=== PATIENT | male | born 1960 | race African-American/Black ===

== ENCOUNTER 2017-08-01 23:11 | Emergency (ER) | payer OTHER ==
[~2017-08-01] VITALS: Ht 175.3 cm; Wt 77.1 kg
[~2017-08-01 23:11] MED LIST: IBUPROFEN600 MG ORAL; NKM
--- NOTE | 2017-08-01 23:56 | Emergency Room Report ---
History of Present Illness General Chief Complaint: Alcohol Intoxication Source: Patient, EMS Present Illness HPI 56-year-old male with unknown pmhx p/w alcohol intoxication. Patient poor historian, EMS states that patient was drinking alcohol, also complaining of some shortness of breath Patient admits to drinking alcohol, cannot quantify amount. Currently denying any complaints. Denies history of trauma Allergies: Coded Allergies: CHLORPROMAZINE (Verified Allergy, Mild, 06/27/15) Patient History Past Medical History: see triage record Past Surgical History: none Pertinent Family History: none Reviewed Nursing Documentation: PMH: Agreed, PSxH: Agreed Nursing Documentation-PM Past Medical History: No History, Except For Hx Cardiac Problems: No - ALCHOLISM Hx Asthma: Yes Review of Systems All Other Systems: negative except mentioned in HPI Physical Exam Vital Signs Date Time Temp Pulse Resp B/P (MAP) Pulse Ox O2 Delivery O2 Flow Rate FiO2 08/01/17 23:14 97.9 72 18 115/72 100 Room Air Sp02 EP Interpretation: reviewed, normal General Appearance: non-toxic, other - intoxicated middle aged male, at this time NAD, mumbling, no sob Head: normocephalic, atraumatic Eyes: bilateral eye normal inspection, bilateral eye PERRL, bilateral eye EOMI ENT: normal ENT inspection, normal pharynx, normal voice, moist mucus membranes Neck: normal inspection, full range of motion, supple Respiratory: normal inspection, lungs clear, normal breath sounds, no respiratory distress, no retraction, no wheezing, speaking full sentences, chest symmetrical Cardiovascular #1: normal inspection, regular rate, rhythm, no edema, normal capillary refill Cardiovascular #2: 2+ radial (R), 2+ radial (L) Gastrointestinal: normal inspection, non tender, soft, non-distended, no guarding Genitourinary: no CVA tenderness Musculoskeletal: normal inspection, back normal, normal range of motion, non- tender Neurologic: motor strength/tone normal, sensory intact, other - intoxicated unable to perform full neuro exam, oriented to person Psychiatric: other - intoxicated Skin: normal inspection, normal color, no rash, warm/dry, well hydrated, normal turgor Medical Decision Making Diagnostic Impression: Primary Impression: Acute alcoholic intoxication Additional Impressions: Cocaine abuse Marijuana abuse ER Course 56-year-old male with alcohol intoxication also complaining of shortness of breath DDX: Alcohol intoxication rule out other toxicity such as aspirin and Tylenol No signs of trauma Shortness of breath: ACS, pneumonia, COPD Plan: BGM, Obtain labs, alcohol level, Tylenol, aspirin level The patient is allergic to aspirin, states that he has shortness of breath and rash ER course: Patient has remained stable during ED stay. Received fluids positive tox for alcohol, marijuana Patient now awake and alert, sober, stable for DC home Ambulating wo difficulty Disposition: Pt to be DCed to home Please note that this Emergency Department Report was dictated using [employer]ou[employer]um[employer] drier operator technology software, occasionally this can lead to erroneous entry secondary to interpretation by the dictation equipment Chest X-ray CXR: Ordered: Yes 1 view Indication: Chest pain EP interpretation: Yes Interpretation: No consolidation, no effusion, no PTX, no acute cardiopulmonary disease Impression: No acute disease Electronically signed by Vin Muniz MD Laboratory Tests Test 08/01/17 23:32 White Blood Count 9.5 K/UL (4.8-10.8) Red Blood Count 5.04 M/UL (4.70-6.10) Hemoglobin 15.6 G/DL (14.2-18.0) Hematocrit 47.9 % (42.0-52.0) Mean Corpuscular Volume 95 FL (80-99) Mean Corpuscular Hemoglobin 31.0 PG (27.0-31.0) Mean Corpuscular Hemoglobin Concent 32.6 G/DL (32.0-36.0) Red Cell Distribution Width 12.7 % (11.6-14.8) Platelet Count 189 K/UL (150-450) Mean Platelet Volume 6.1 FL (6.5-10.1) L Neutrophils (%) (Auto) 52.1 % (45.0-75.0) Lymphocytes (%) (Auto) 34.1 % (20.0-45.0) Monocytes (%) (Auto) 10.0 % (1.0-10.0) Eosinophils (%) (Auto) 2.1 % (0.0-3.0) Basophils (%) (Auto) 1.7 % (0.0-2.0) Sodium Level 134 MMOL/L (136-145) L Potassium Level 3.6 MMOL/L (3.5-5.1) Chloride Level 100 MMOL/L (98-107) Carbon Dioxide Level 15 MMOL/L (21-32) L Anion Gap 19 (5-15) H Blood Urea Nitrogen 11 mg/dL (7-18) Creatinine 0.8 MG/DL (0.55-1.00) Estimate Glomerular Filtration Rate > 60 mL/min (>60) Glucose Level 148 MG/DL (74-106) H Calcium Level 9.5 MG/DL (8.5-10.1) Total Bilirubin 0.4 MG/DL (0.2-1.0) Aspartate Amino Transferase (AST) 66 U/L (15-37) H Alanine Aminotransferase (ALT) 43 U/L (12-78) Alkaline Phosphatase 73 U/L (46-116) Total Creatine Kinase 224 U/L (26-308) Troponin I 0.000 ng/mL (0.000-0.056) Total Protein 8.1 G/DL (6.4-8.2) Albumin 3.2 G/DL (3.4-5.0) L Globulin 4.9 g/dL Albumin/Globulin Ratio 0.6 (1.0-2.7) L Salicylates Level 3 ug/mL (2.8-20) Urine Opiates Screen Negative (NEGATIVE) Acetaminophen Level 8.0 MCG/ML (10-30) L Urine Barbiturates Screen Negative (NEGATIVE) Phencyclidine (PCP) Screen Positive (NEGATIVE) H Urine Amphetamines Screen Negative (NEGATIVE) Urine Benzodiazepines Screen Negative (NEGATIVE) Urine Cocaine Screen Positive (NEGATIVE) H Urine Marijuana (THC) Screen Positive (NEGATIVE) H Serum Alcohol 327 mg/dL EKG Diagnostic Results Rate: normal Rhythm: NSR ST Segments: other - KORY in V3 only, no reciprocal changes (present on previous EKGs) Rhythm Strip Diag. Results EP Interpretation: yes Rate: 72 Rhythm: NSR, no PVC's, no ectopy Last Vital Signs Date Time Temp Pulse Resp B/P (MAP) Pulse Ox O2 Delivery O2 Flow Rate FiO2 08/01/17 23:14 97.9 72 18 115/72 100 Room Air Disposition: HOME, SELF-CARE Condition: Improved Referrals: [facility] (PCP) Patient Instructions: Alcohol Intoxication, [id number] Vin Muniz M.D. Aug 01, 2017 23:56
[2017-08-02 00:05] LABS: BASOPHILS % (AUTO) 1.7 % (0.0-2.0); EOSINOPHILS % (AUTO) 2.1 % (0.0-3.0); LYMPHOCYTES % (AUTO) 34.1 % (20.0-45.0); MEAN CORPUSCULAR HGB CONC 32.6 G/DL (32.0-36.0); MEAN CORPUSCULAR VOLUME 95 FL (80-99); MEAN PLATELET VOLUME 6.1 FL (6.5-10.1); NEUTROPHILS % (AUTO) 52.1 % (45.0-75.0); PLATELET COUNT 189 K/UL (150-450); RED BLOOD COUNT 5.04 M/UL (4.70-6.10); RED CELL DISTRIBUTION WIDTH 12.7 % (11.6-14.8); WHITE BLOOD COUNT 9.5 K/UL (4.8-10.8)
[2017-08-02 00:46] VITALS: BP 103/63
[2017-08-02 02:08] LABS: ALANINE AMINOTRANSFERASE 43 U/L (12-78); ALBUMIN/GLOBULIN RATIO 0.6 (1.0-2.7); ANION GAP 19 (5-15); ASPARTATE AMINO TRANSFERASE 66 U/L (15-37); CARBON DIOXIDE 15 MMOL/L (21-32); CHLORIDE 100 MMOL/L (98-107); CREATININE 0.8 MG/DL (0.55-1.00); GLOMERULAR FILTRATION RATE > 60 mL/min (>60); POTASSIUM 3.6 MMOL/L (3.5-5.1); SODIUM 134 MMOL/L (136-145); TOTAL PROTEIN 8.1 G/DL (6.4-8.2)
[2017-08-02 02:40] VITALS: BP 114/75
[2017-08-02 02:44] LABS: ALCOHOL 327 mg/dL; CALCIUM 9.5 MG/DL (8.5-10.1)
[2017-08-02 04:40] VITALS: BP 107/72
[2017-08-02 06:12] VITALS: BP 110/83
[2017-08-02 06:20] VITALS: BP 110/83
--- NOTE | 2017-08-02 10:07 | Diagnostic Imaging Report ---
Indication: Chest pain Comparison: None A single view chest radiograph was obtained. Findings: Cardiomediastinal appearance is within normal limits for age. Aorta mildly ectatic. Pulmonary vascularity is appropriate. The diaphragmatic contour is smooth and costophrenic angles are sharp. No pleural effusions are identified. The bones are osteopenic. Impression: No acute findings
--- NOTE | 2017-08-03 08:09 | Cardiology Report ---
APPROVED REPORT EKG Measurement Heart [id number] Normal sinus rhythm Septal infarct, age undetermined Abnormal ECG
== END 2017-08-02 06:20 | disposition home or self-care (01) ==
LOC: EDUNIT# 23:11 → EDBD 23:11 → EMR 23:27
DX: F10.129 Alcohol abuse with intoxication, unspecified (principal); F14.10 Cocaine abuse, uncomplicated; F12.10 Cannabis abuse, uncomplicated
CPT/HCPCS: 36415; 71010; 80053; 80300; 80329; 82550; 84484; 85025; 93005; 96360; 99284

== ENCOUNTER 2019-06-23 18:45 | Emergency (ER) | payer OTHER ==
[~2019-06-23] VITALS: Ht 177.8 cm; Wt 63.5 kg
[2019-06-23 18:55] VITALS: BP 140/85
--- NOTE | 2019-06-23 18:55 | NUR ---
ED Nurse Note: AYDE RA 26 for etoh intoxication via gurney. pt is lethargic. unable to stay awake more than 5 seconds. VSS
--- NOTE | 2019-06-23 19:03 | Emergency Room Report ---
History of Present Illness General Chief Complaint: Altered Level of Consciousness Source: Patient Present Illness [facility] EMS was called by a concerned citizen and a bus stop. The patient was lethargic. Allegedly he has been drinking alcohol. Bystanders denied any observed seizure or head trauma. During transport the patient was unable to answer questions for the paramedics. Here he is barely able to answer his name with slurred speech. Unable to answer other questions. Has vomitus on shirt. After terminating his name this is his most recent visit Jul 2017 with d/c dx: Primary Impression: Acute alcoholic intoxication Additional Impressions: Cocaine abuse Marijuana abuse Allergies: Coded Allergies: CHLORPROMAZINE (Verified Allergy, Mild, 06/27/15) UNABLE TO ASSESS (Unverified , 06/23/19) Patient History Limited by: medical condition Past Medical History: see triage record, old chart reviewed Social History: Reports: smoking, alcohol use, drug use Social History Narrative From [facility] Reviewed Nursing Documentation: PMH: Agreed; PSxH: Agreed Nursing Documentation-PM Past Medical History: No History, Except For Hx Cardiac Problems: No - ALCHOLISM Hx Asthma: Yes Review of Systems All Other Systems: limited Physical Exam Vital Signs Date Time Temp Pulse Resp B/P (MAP) Pulse Ox O2 Delivery O2 Flow Rate FiO2 06/23/19 18:46 97.5 90 16 150/105 (120) 99 Sp02 EP Interpretation: reviewed, normal General Appearance: no apparent distress, lethargic Head: normocephalic, atraumatic Eyes: bilateral eye PERRL, bilateral eye abnormal EOM, bilateral eye Scleral Injection ENT: moist mucus membranes - Gag present Neck: supple Respiratory: lungs clear, normal breath sounds Cardiovascular #1: regular rate, rhythm Cardiovascular #2: 2+ radial (R) Gastrointestinal: normal inspection, non tender, no mass, non-distended, decreased bowel sounds Musculoskeletal: back normal, normal range of motion Neurologic: motor strength/tone normal, sensory intact - Withdraws to painful stimuli, nystagmus Psychiatric: other - Lethargic Reflexes: 1+ knee (R), 1+ knee (L) Skin: no rash Medical Decision Making Diagnostic Impression: Primary Impression: Alcohol intoxication Qualified Codes: F10.929 - Alcohol use, unspecified with intoxication, unspecified ER Course Patient brought by EMS for altered mentation with a smell of alcohol on his breath and vomit uninsured. Differential includes acute alcohol intoxication, electrolyte imbalance, aspiration, rhabdomyolysis amongst others. Evaluation will be with EKG, chest x-ray and labs. The patient will receive IV thiamine and IV hydration. CT imaging of his head is not indicated as long is mentation improves. CXR poor insp. Labs unremarkable except for elevated LFTs and slightly low mg. Patient attempted to stand but was unable to do so. Caught by staff before falling. Questionable addition as patient was able to apparently transfer from EMS to [facility]. Minimally improved responsiveness. Still Gag. 20:50. Signed out to Dr. Heard. Laboratory Tests Test 06/23/19 19:05 White Blood Count 6.0 K/UL (4.8-10.8) Red Blood Count 5.14 M/UL (4.70-6.10) Hemoglobin 15.2 G/DL (14.2-18.0) Hematocrit 44.7 % (42.0-52.0) Mean Corpuscular Volume 87 FL (80-99) Mean Corpuscular Hemoglobin 29.5 PG (27.0-31.0) Mean Corpuscular Hemoglobin Concent 33.9 G/DL (32.0-36.0) Red Cell Distribution Width 12.0 % (11.6-14.8) Platelet Count 221 K/UL (150-450) Mean Platelet Volume 5.4 FL (6.5-10.1) L Neutrophils (%) (Auto) 36.4 % (45.0-75.0) L Lymphocytes (%) (Auto) 46.1 % (20.0-45.0) H Monocytes (%) (Auto) 12.6 % (1.0-10.0) H Eosinophils (%) (Auto) 1.6 % (0.0-3.0) Basophils (%) (Auto) 3.3 % (0.0-2.0) H Prothrombin Time 11.1 SEC (9.30-11.50) Prothrombin Time INR 1.0 (0.9-1.1) Sodium Level 144 MMOL/L (136-145) Potassium Level 4.0 MMOL/L (3.5-5.1) Chloride Level 106 MMOL/L (98-107) Carbon Dioxide Level 25 MMOL/L (21-32) Anion Gap 13 mmol/L (5-15) Blood Urea Nitrogen 5 mg/dL (7-18) L Creatinine 0.7 MG/DL (0.55-1.30) Estimate Glomerular Filtration Rate > 60 mL/min (>60) Glucose Level 104 MG/DL (74-106) Calcium Level 8.9 MG/DL (8.5-10.1) Magnesium Level 1.7 MG/DL (1.8-2.4) L Total Bilirubin 0.4 MG/DL (0.2-1.0) Aspartate Amino Transferase (AST) 185 U/L (15-37) H Alanine Aminotransferase (ALT) 106 U/L (12-78) H Alkaline Phosphatase 66 U/L (46-116) Total Creatine Kinase 270 U/L (26-308) Total Protein 8.3 G/DL (6.4-8.2) H Albumin 3.5 G/DL (3.4-5.0) Globulin 4.8 g/dL Albumin/Globulin Ratio 0.7 (1.0-2.7) L Rhythm Strip Diag. Results EP Interpretation: yes Rhythm: NSR, no PVC's, no ectopy Chest X-Ray Diagnostic Results Chest X-Ray Diagnostic Results : Chest X-Ray Ordered: Yes # of Views/Limited/Complete: 1 View Indication: Other EP Interpretation: Yes Interpretation: no consolidation, no effusion, no pneumothorax, other - Hypoventilation Impression: Other Electronically Signed by: Electronically signed by Adam Cordero MD Last Vital Signs Date Time Temp Pulse Resp B/P (MAP) Pulse Ox O2 Delivery O2 Flow Rate FiO2 06/23/19 21:02 98.0 85 20 125/74 99 Room Air 06/23/19 18:55 99 Status: improved Disposition: HOME, SELF-CARE Condition: Improved Adam Cordero MD Jun 23, 2019 19:03
[2019-06-23 19:16] LABS: BASOPHILS % (AUTO) 3.3 % (0.0-2.0); EOSINOPHILS % (AUTO) 1.6 % (0.0-3.0); HEMATOCRIT 44.7 % (42.0-52.0); HEMOGLOBIN 15.2 G/DL (14.2-18.0); LYMPHOCYTES % (AUTO) 46.1 % (20.0-45.0); MEAN CORPUSCULAR VOLUME 87 FL (80-99); MONOCYTES % (AUTO) 12.6 % (1.0-10.0); NEUTROPHILS % (AUTO) 36.4 % (45.0-75.0); PLATELET COUNT 221 K/UL (150-450); RED BLOOD COUNT 5.14 M/UL (4.70-6.10)
--- NOTE | 2019-06-23 19:37 | Diagnostic Imaging Report ---
EXAM: XR Chest, 1 View CLINICAL HISTORY: ALOC TECHNIQUE: Frontal view of the chest. COMPARISON: No relevant prior studies available. FINDINGS: Lungs: Reduced lung volumes and accentuation of markings. No confluent consolidation. Pleural space: Unremarkable. No pneumothorax. Heart: Unremarkable. No cardiomegaly. Mediastinum: Unremarkable. Bones/joints: No acute fracture. IMPRESSION: Reduced lung volumes and accentuation of markings. No confluent consolidation.
[2019-06-23 19:54] LABS: ANION GAP 13 mmol/L (5-15); BLOOD UREA NITROGEN 5 mg/dL (7-18); CALCIUM 8.9 MG/DL (8.5-10.1); CARBON DIOXIDE 25 MMOL/L (21-32); CHLORIDE 106 MMOL/L (98-107); CREATININE 0.7 MG/DL (0.55-1.30); SODIUM 144 MMOL/L (136-145)
[2019-06-23 19:59] LABS: ALANINE AMINOTRANSFERASE 106 U/L (12-78); ALBUMIN 3.5 G/DL (3.4-5.0); ALBUMIN/GLOBULIN RATIO 0.7 (1.0-2.7); ALKALINE PHOSPHATASE 66 U/L (46-116); ASPARTATE AMINO TRANSFERASE 185 U/L (15-37); BILIRUBIN,TOTAL 0.4 MG/DL (0.2-1.0); CREATINE KINASE 270 U/L (26-308)
[2019-06-23 21:02] VITALS: BP 125/74
--- NOTE | 2019-06-23 22:21 | NUR ---
ED Nurse Note: pt continues with IV fluid therapy. VSS. pt still lethargic and unable to stay awake or carry on a conversation.
[2019-06-23 23:08] VITALS: BP 130/70
--- NOTE | 2019-06-24 00:02 | NUR ---
ED Nurse Note: pt i in bed with eyes closed. VSS
[2019-06-24 01:16] VITALS: BP 132/81
--- NOTE | 2019-06-24 02:17 | NUR ---
ED Nurse Note: pt in bed with eyes closed. IVF of NS 300ml/hr running to right AC. VSS. No acute distress is noted at this time.
[2019-06-24 03:20] VITALS: BP 148/102
--- NOTE | 2019-06-24 03:46 | NUR ---
ED Nurse Note: pt in bed awake. offered food but pt refused. states he is not hungry at this time.
--- NOTE | 2019-06-24 05:02 | NUR ---
ED Nurse Note: pt awake, assisted pt to restroom, pt ambulated without difficulty with steady gait. [place] and juice/ water given. VSS
--- NOTE | 2019-06-24 05:06 | Emergency Room Report ---
Physical Exam Vital Signs Date Time Temp Pulse Resp B/P (MAP) Pulse Ox O2 Delivery O2 Flow Rate FiO2 06/23/19 18:46 97.5 90 16 150/105 (120) 99 06/23/19 18:55 Room Air 06/23/19 18:55 99 Medical Decision Making Homeless Attestation The patient was medically screened by me and deemed appropriate for outpatient follow-up Diagnostic Impression: Primary Impression: Alcohol intoxication Qualified Codes: F10.929 - Alcohol use, unspecified with intoxication, unspecified ER Course Briefly, this is a 58-year-old male presenting today for alcohol intoxication. Patient was signed out to me 2200 hrs. and was allowed to metabolize in the emergency department. He is now awake, alert, ambulating with a steady gait. He will be given new close and counseled on the dangers of excessive alcohol use. Last Vital Signs Date Time Temp Pulse Resp B/P (MAP) Pulse Ox O2 Delivery O2 Flow Rate FiO2 06/24/19 03:20 98.1 84 20 148/102 97 Room Air 06/23/19 18:55 99 Disposition: HOME, SELF-CARE Condition: Improved Referrals: [facility] (PCP) Patient Instructions: Alcohol Intoxication Additional Instructions: See your doctor next week. Consider going to an AA meeting. Moderation or none at all. Teodoro Heard MD Jun 24, 2019 05:06
[2019-06-24 05:20] VITALS: BP 130/82
--- NOTE | 2019-06-24 05:20 | NUR ---
ER DISCHARGE NOTE: Patient is cleared to be discharged per ERMD, pt is aox4, on room air, with stable vital signs. pt was given dc instructions, pt was able to verbalize understanding, pt id band and iv site removed without complications. pt is able to ambulate with steady gait. pt took all belongings. bus token was provided to pt.
== END 2019-06-24 05:20 | disposition home or self-care (01) ==
LOC: EDBD 18:45 → EDUNIT# 18:45 → EMR 19:02
DX: F10.929 Alcohol use, unspecified with intoxication, unspecified (principal); F17.200 Nicotine dependence, unspecified, uncomplicated; J45.909 Unspecified asthma, uncomplicated; R41.82 Altered mental status, unspecified; R06.89 Other abnormalities of breathing; Z88.8 Allergy status to other drugs, medicaments and biological substances
CPT/HCPCS: 36415; 71045; 80053; 82550; 83735; 85025; 85610; 96360; 96361; 99284

== ENCOUNTER 2019-12-28 23:14 | Emergency (ER) | payer OTHER ==
[~2019-12-28] VITALS: Ht 175.3 cm; Wt 63.5 kg
--- NOTE | 2019-12-28 23:15 | NUR ---
ED Nurse Note: Walk-in patient picked up off of the street for doing drugs that patient denies he ingested. possibly PCP. patient is resting with no complaints, will monitor for orders.
[2019-12-28 23:19] VITALS: BP 144/95
--- NOTE | 2019-12-28 23:30 | Emergency Room Report ---
History of Present Illness General Chief Complaint: Overdose Source: Patient, Medical Record, EMS Present Illness HPI This is a 59-year-old male with a history of alcohol and drug abuse. He came in by EMS with chief complaint of overdose. He was found on the street intoxicated and altered. Bystander called 911. Patient denies any drug use other than marijuana tonight. He said he has not used cocaine for over a year. Denies any PCP use. He admits to drinking alcohol. Denies suicidal thoughts homicidal thought. No trauma. Nothing made it better. Nothing made it worse. Denies any other complaint. Allergies: Coded Allergies: CHLORPROMAZINE (Verified Allergy, Mild, 06/27/15) No Known Allergies (Unverified , 12/28/19) UNABLE TO ASSESS (Unverified , 06/23/19) Patient History Past Medical History: see triage record, old chart reviewed, HTN, asthma Past Surgical History: other Pertinent Family History: none Social History: Reports: smoking, alcohol use, drug use Immunizations: other Reviewed Nursing Documentation: PMH: Agreed; PSxH: Agreed Nursing Documentation-PMH Past Medical History: No History, Except For Hx Hypertension: Yes Hx Asthma: Yes Hx Seizures: Yes Review of Systems Eye: Denies: eye pain, blurred vision ENT: Denies: ear pain, nose congestion, throat swelling Respiratory: Denies: cough, shortness of breath Cardiovascular: Denies: chest pain, palpitations Gastrointestinal: Denies: abdominal pain, diarrhea, nausea, vomiting Musculoskeletal: Denies: back pain, joint pain Skin: Denies: rash Neurological: Denies: headache, numbness Endocrine: Denies: increased thirst, increased urine Hematologic/Lymphatic: Denies: easy bruising All Other Systems: negative except mentioned in HPI Physical Exam Vital Signs Date Time Temp Pulse Resp B/P (MAP) Pulse Ox O2 Delivery O2 Flow Rate FiO2 12/28/19 23:08 98.8 75 20 144/95 (111) 98 Room Air Vitals unremarkable Sp02 EP Interpretation: reviewed, normal General Appearance: well appearing, no apparent distress, alert, other - Intoxicated Head: normocephalic, atraumatic Eyes: bilateral eye PERRL, bilateral eye EOMI ENT: hearing grossly normal, normal pharynx Neck: full range of motion, supple, no meningismus Respiratory: chest non-tender, lungs clear, normal breath sounds Cardiovascular #1: regular rate, rhythm, no murmur Gastrointestinal: normal bowel sounds, non tender, no mass, no organomegaly, no bruit, non-distended Musculoskeletal: back normal, normal range of motion, gait/station normal Psychiatric: mood/affect normal Medical Decision Making Diagnostic Impression: Primary Impression: Alcohol intoxication Qualified Codes: F10.920 - Alcohol use, unspecified with intoxication, uncomplicated ER Course Patient with altered mental status secondary alcohol intoxication. There is no trauma to warrant x-ray or CT scan. Patient not suicidal homicidal. He denies drug use other than marijuana. Will discharge home once he is clinically sober. Last Vital Signs Date Time Temp Pulse Resp B/P (MAP) Pulse Ox O2 Delivery O2 Flow Rate FiO2 12/28/19 23:19 75 20 Room Air 12/28/19 23:19 98.8 144/95 98 Status: improved Disposition: HOME, SELF-CARE Condition: Stable Additional Instructions: Abstain from drugs and alcohol. Follow-up with your doctor in 7 days. Go to rehab. Return if worse. Markos Avina MD Dec 28, 2019 23:30
[2019-12-28 23:47] VITALS: BP 130/95
--- NOTE | 2019-12-29 00:15 | NUR ---
ED Nurse Note: Patient was givena warm blanket to rest. Will continue to monitor.
--- NOTE | 2019-12-29 01:04 | NUR ---
ED Nurse Note: Patient sleeping soundly, no s/s of acute distress.
[2019-12-29 02:20] VITALS: BP 142/87
--- NOTE | 2019-12-29 02:22 | NUR ---
ED Nurse Note: Patient still sleeping soundly with no s/s of acute distress. Vital signs stable and documented. Will continue to monitor.
--- NOTE | 2019-12-29 03:37 | NUR ---
ED Nurse Note: Patient still sleeping with no signs or symptoms of acute distress. Will continue to monitor.
[2019-12-29 05:43] VITALS: BP 142/87
--- NOTE | 2019-12-29 05:43 | NUR ---
ER DISCHARGE NOTE: Patient is cleared to be discharged per ERMD, pt is aox4, on room air, with stable vital signs. pt was given dc and prescription instructions, pt was able to verbalize understanding, pt id band removed without complications. pt is able to ambulate with steady gait. pt took all belongings.
== END 2019-12-29 05:49 | disposition home or self-care (01) ==
LOC: EDBD 23:14 → EMR 23:35
DX: F10.129 Alcohol abuse with intoxication, unspecified (principal); R41.82 Altered mental status, unspecified; I10 Essential (primary) hypertension; J45.909 Unspecified asthma, uncomplicated; Z88.8 Allergy status to other drugs, medicaments and biological substances; F12.90 Cannabis use, unspecified, uncomplicated
CPT/HCPCS: 99281

== ENCOUNTER 2020-06-09 20:11 | Emergency (ER) | payer OTHER ==
[~2020-06-09] VITALS: Ht 180.3 cm; Wt 68.0 kg
[~2020-06-09 20:11] MED LIST changes: +IBUPROFEN600 M1 ORAL
--- NOTE | 2020-06-09 20:18 | Emergency Room Report ---
History of Present Illness General Chief Complaint: Substance Abuse Present Illness HPI Male of unknown age here after apparent drug overdose. Patient was seen lying at a bus stop by passersby and paramedics were called. When they arrived patient had pinpoint pupils and was breathing only a few times per minute. He had an IV established in the left hand and immediately was given 2 mg of Narcan IV. After about 1 minute the patient became slightly more responsive and talkative. Here in the emergency department the patient is somnolent but responds to questions and follows commands. He admits to injecting heroin today. Denies alcohol or any other drug use. Denies fevers, chills, chest pain , palpitations, shortness of breath, back pain, abdominal pain, nausea, vomiting , diarrhea, dysuria. (Go Goldman M.D.) Allergies: Coded Allergies: No Known Allergies (Unverified , 06/09/20) COVID-19 Screening Contact w/high risk pt: No Experienced COVID-19 symptoms?: No COVID-19 Testing performed PHOTOGRAPH TINTER: No (Go Goldman M.D.) Review of Systems All Other Systems: negative except mentioned in HPI (Go Goldman M.D.) Physical Exam Vital Signs Date Time Temp Pulse Resp B/P (MAP) Pulse Ox O2 Delivery O2 Flow Rate FiO2 06/09/20 20:09 99.0 91 18 136/88 (104) 98 Room Air Sp02 EP Interpretation: reviewed, normal General Appearance: no apparent distress, non-toxic, other - Disheveled. Appears slightly intoxicated and mildly somnolent Head: normocephalic, atraumatic Eyes: bilateral eye normal inspection, bilateral eye PERRL ENT: hearing grossly normal, normal pharynx, no angioedema, normal voice Neck: full range of motion, supple/symm/no masses Respiratory: chest non-tender, lungs clear, normal breath sounds, speaking full sentences Cardiovascular #1: regular rate, rhythm, no edema Cardiovascular #2: 2+ carotid (R), 2+ carotid (L), 2+ radial (R), 2+ radial (L) , 2+ dorsalis pedis (R), 2+ dorsalis pedis (L) Gastrointestinal: normal bowel sounds, non tender, soft, non-distended, no guarding, no rebound Rectal: deferred Genitourinary: normal inspection, no CVA tenderness Musculoskeletal: back normal, normal range of motion, calf tenderness, gait/ station normal, non-tender Neurologic: alert, motor strength/tone normal, oriented x3, sensory intact, responsive, speech normal Psychiatric: judgement/insight normal, memory normal, mood/affect normal, no suicidal/homicidal ideation Reflexes: 3+ bicep (R), 3+ bicep (L), 3+ tricep (R), 3+ tricep (L), 3+ knee (R) , 3+ knee (L) Lymphatic: no adenopathy (Go Goldman M.D.) Sp02 EP Interpretation: reviewed, normal (Kathleen Naidu D.O.) Procedures Splinting Progress L ulnar gutter Splint: splint applied to L hand (Indication: proximal 4th phalanx fx) Splint applied by tech with direct supervision by me. Reassessed following splint application. Neurovascular intact. Compartments remain soft and compressible. Pt tolerated well without complications. Splint care instructions were discussed. Pt to follow up with orthopedics within 1 week to prevent future arthritis and penitentiary disability. (Kathleen Naidu D.O.) Medical Decision Making Diagnostic Impression: Primary Impression: Alcohol abuse Additional Impressions: PCP (phencyclidine) abuse Cocaine abuse Marijuana abuse Fracture of proximal phalanx of left ring finger Hand pain, left Osteoarthritis ER Course Ddx: Anxiety, brief psychotic disorder, drug abuse/withdrawal, alcohol intoxication/withdrawal, medication noncompliance, electrolyte/metabolic abnormalities, SI/HI, encephalopathy, sepsis 59-year-old male here with suspected drug abuse. When patient arrived in the emergency department he initially admitted to injecting heroin earlier tonight. On paramedics found on the patient was unresponsive and they gave him 2 mg of Narcan IV with good resolution in the patient's altered mental status. On reevaluation the patient then denied using heroin. For this reason we will perform urine drug screen, lab work to ascertain whether the patient truly was intoxicated from heroin or some other reason for altered mental status. Labs currently pending. Chest x-ray: No infiltrate/effusion. Mediastinum within normal limits (Go Goldman M.D.) ER Course I, Dr Kathleen Naidu, have assumed care of the patient. Initial workup, history , and physical performed by previous provider has been reviewed by myself and I have performed my own physical exam of the patient. PHYSICAL EXAM GENERAL: Awake_alert_ nontoxic, no acute distress EYES: Extraocular muscles are intact. Conjunctiva clear. Lids without swelling ENT: External nose and ear normal_in_appearance.. Oropharynx clear. Head_ atraumatic, Moist_oral_mucosa NECK: No thyromegaly. Supple. Trachea midline RESP: Normal respiratory effort. Symmetric rise. No stridor. CHEST: Symmetric b/l chest movement. No_tenderness ABDOMEN: Soft. Nondistended. Nontender, No_rebound_or_guarding. No_ hepatosplenomegaly MSK: Normal muscle tone, without rigidity. Extremities without asymmetric deformity or swelling. L HAND: scissoring of L index finger w TTP proximal phalanx + volar angulation No snuffbox TTP Intact AIN PIN MEDIAN RADIAL ULNAR N. SILT. CR< 2 sec. Compartments soft and compressible SKIN: Warm and dry. No visible cyanosis or pallor NEUROLOGIC: -After sobering: Now Alert, oriented x3. Motor_and_sensation_grossly_intact. No truncal ataxia. ambulating steadily without assistance Psych: Normal mood and affect, normal judgment and insight Differential diagnosis includes alcohol intoxication, alcohol withdrawal, hypoglycemia, drug intoxication or overdose, schizo, bipolar among others. Upon arrival the patients fingerstick glucose was normal with no evidence of hypoglycemia. Pt does not currently exhibit any focal neurologic deficits, is conversant, GCS 15 and AOx4. Patient is asking me for something to eat. States "I aint gonna lie to you. I drank a lot of beer today". CT head not indicated as patient is clinically sober, ambulatory, with no abnormal cerebellar signs. The patient has no significant tremors or tachycardia, and their presentation seems most consistent with alcohol intoxication without withdrawal. UDS is also positive for PCP, marijuana, and cocaine. Patient endorsed taking substances to previous ER MD but denies use to me. The patient was observed in the emergency department with serial neurologic exams for improvement in their mental status and until clinically sober. Into the ED stay, he states he has chronic pain at the L 4th finger from a fall 1 month ago. Xray hand shows comminuted fx at the base of L 4th proximal phalanx with DJD/OA of 2nd-5th DIP. I reviewed previous xray from 05/14/2020 which had the same exact finding. Pt was placed in ulnar gutter splint. Pt was instructed to follow up with hand specialist. He still has not almost one month later. Labs: UDS +PCP, +marijuana, +cocaine Negative opiates Etoh Level is 356. EKG is unremarkable. QTc interval is within normal limits. - REASSESSMENT - After serial neurologic exams in the emergency department, the patients mental status significantly improved. The patient was able to follow commands and is clinically sober. They have no focal neurologic deficits and were able to ambulate with a steady gait without assistance. Attempts to contact patient's sister but patient states she is unwilling to come get him due to having to go to [place]. No repeat narcan needed in ED. No desaturations on telemetry or ectopy on monitoring specialist. The patients presentation seems to be consistent with alcohol intoxication, which has resolved, without any complications such as alcohol withdrawal, head injury, GI bleeding, or intracranial bleeding. The patient appears to be safe for discharge home. Patient understands not to drive and appears able to care for themselves. 2350: CT was ordered but patient eloped and ambulated out of ER after eating a turkey sandwich from the ED before it could be completed (according to MERY Wilks) Splint care instructions discussed were discussed prior to his elopement (Kathleen Naidu D.O.) EKG Diagnostic Results CHARLIE Murillo 12-lead EKG (interpreted by me) Time: 2158 Indication: Rhythm analysis Tracing visualized and Interpreted by me. Rhythm: Normal sinus rhythm Rate: 78 bpm QTc: 419 Morphology: No_significant_ST_elevations_or_depressions, No STEMI Impression: Normal_sinus_rhythm_without_significant_abnormality (Kathleen Naidu.[email or web address]) Rhythm Strip Diag. Results Rhythm Strip Time: 22:09 EP Interpretation: yes Rate: 2158 Rhythm: NSR, no PVC's, no ectopy (Kathleen Naidu D.O.) Chest X-Ray Diagnostic Results Chest X-Ray Diagnostic Results : CHARLIE Murillo Chest x-ray: No infiltrate/effusion. Mediastinum within normal limits (Go Goldman M.D.) Chest X-Ray Diagnostic Results : CHARLIE Murillo Left hand X-ray: Views: 2 view(s) Comminuted fracture of the base of the fourth proximal phalanx with volar angulation. Involves the articular surface. Degenerative changes of the second through fifth distal interphalangeal joints and first carpometacarpal joint. Indication: Pain Impression: Comminuted intra-articular fracture of the base of the fourth proximal phalanx. DJD. Osteoarthritis The X-ray(s) were independently viewed and interpreted contemporaneously - Electronically signed by Kathleen can DO (Kathleen Naidu D.O.) Last Vital Signs Date Time Temp Pulse Resp B/P (MAP) Pulse Ox O2 Delivery O2 Flow Rate FiO2 06/09/20 20:09 99.0 91 18 136/88 (104) 98 Room Air (Go Goldman M.D.) Reevaluation Time: 23:08 Status: improved (Kathleen Naidu D.O.) Disposition: HOME, SELF-CARE Admit Decision Time: 23:08 (Kathleen Naidu D.O.) Condition: Stable Scripts Naproxen* (NAPROXEN*) 500 Mg Tablet.dr 500 MG ORAL TWICE A DAY for 14 Days, #28 TAB Prov: Kathleen Naidu D.O. 06/09/20 Patient Instructions: Alcohol Abuse and Nutrition, Alcohol Intoxication, Easy- to-Read, Cannabis Use Disorder, Finger Fracture, Jogi-gv-Mtec, Stimulant Use Disorder-Cocaine, Substance Use Disorder Additional Instructions: Instructions for patient/metal sorter: Follow up with your physician in 1 to 2 days. You need to follow-up with a hand specialist regarding your left finger fracture. For now, please keep the splint on your left hand clean, dry, and intact as we discussed. If you do not follow-up in a timely fashion with a hand specialist for your finger fracture, you will develop lifelong osteoarthritis and chronic pain. Do not drink and drive Cut down on alcohol as it is bad for your health Do not take illicit drugs Follow-up with your doctor sooner if your condition requires a more timely clinical reevaluation. Return to the emergency department immediately if you feel that your condition is worsening or if you have any new or concerning symptoms. Review your discharge instructions and take any prescriptions given as instructed. Go Goldman M.D. Jun 09, 2020 20:18 Kathleen Naidu D.O. Jun 09, 2020 22:10
[2020-06-09 20:19] VITALS: BP 136/88
--- NOTE | 2020-06-09 20:19 | NUR ---
ED Nurse Note: pt tony from street [place] possible OD. Pt given Narcan and Zofran en route to hospital with EMS. pt stated he consumed heroin intranasally earlier this evening. Pt aao x 2, unable to ambulate at this time. Pt BP elevated, ERMD aware. pt placed in gown and on monitor in bed. IV initiated with EMS in left hand 18g, patent. Blood work drawn and sent to lab. ERMD at bedside. VSS no ss of distress noted. Will continue to monitor.
--- NOTE | 2020-06-09 20:25 | NUR ---
ED Nurse Note: xray at bedside
--- NOTE | 2020-06-09 21:14 | NUR ---
ED Nurse Note: Pt awoke aao x 4, lucid and able to verbalize needs and understanding of current situation and place of care. ERMD aware. UA sent to lab. Awaiting further orders.
[2020-06-09 21:53] LABS: BASOPHILS % (AUTO) 3.1 % (0.0-2.0); EOSINOPHILS % (AUTO) 0.6 % (0.0-3.0); HEMATOCRIT 43.1 % (42.0-52.0); HEMOGLOBIN 14.3 G/DL (14.2-18.0); LYMPHOCYTES % (AUTO) 31.8 % (20.0-45.0); MEAN CORPUSCULAR VOLUME 92 FL (80-99); MONOCYTES % (AUTO) 12.4 % (1.0-10.0); NEUTROPHILS % (AUTO) 52.1 % (45.0-75.0); PLATELET COUNT 188 K/UL (150-450); RED BLOOD COUNT 4.71 M/UL (4.70-6.10); RED CELL DISTRIBUTION WIDTH 14.1 % (11.6-14.8); WHITE BLOOD COUNT 7.4 K/UL (4.8-10.8)
[2020-06-09 22:01] LABS: ANION GAP 12 mmol/L (5-15); BLOOD UREA NITROGEN 6 mg/dL (7-18); CALCIUM 9.2 MG/DL (8.5-10.1); CARBON DIOXIDE 26 MMOL/L (21-32); CHLORIDE 102 MMOL/L (98-107); CREATININE 0.9 MG/DL (0.55-1.30); POTASSIUM 3.9 MMOL/L (3.5-5.1); SODIUM 140 MMOL/L (136-145)
[2020-06-09 22:06] LABS: ALANINE AMINOTRANSFERASE 102 U/L (12-78); ALBUMIN 3.5 G/DL (3.4-5.0); ALBUMIN/GLOBULIN RATIO 0.7 (1.0-2.7); ALKALINE PHOSPHATASE 58 U/L (46-116); ASPARTATE AMINO TRANSFERASE 140 U/L (15-37); BILIRUBIN,TOTAL 0.4 MG/DL (0.2-1.0)
[2020-06-09 22:16] VITALS: BP 139/86
[2020-06-09] MEDS ORDERED: Ketorolac 30mg Inj IM ONE (22:30)
[2020-06-09] MEDS ORDERED: Thiamine 100mg tab ORAL ONE (22:30)
--- NOTE | 2020-06-09 22:40 | NUR ---
ED Nurse Note: all medications administered, pt tolerated well no ss of distress noted. will continue to monitor.
[2020-06-09] MEDS ORDERED: NAPROXEN500 M1 ORAL (23:13)
--- NOTE | 2020-06-09 23:15 | NUR ---
ED Nurse Note: Splint applied to affected left arm. Pt tolerated well no ss of distress noted.
--- NOTE | 2020-06-09 23:18 | Diagnostic Imaging Report ---
INDICATION: Pain COMPARISON: FINDINGS: 3 views of the left hand are obtained. Fracture at the base of the fourth proximal phalanx. Osteopenia of the bones. Gross anatomic alignment of the joints. Moderately severe first DETENTION joint osteoarthritis. Mild at the first and second DETENTION joints. IMPRESSION: 1. Fracture at base of foot proximal phalanx with mild volar angulation.
[2020-06-09 23:51] VITALS: BP 132/89
--- NOTE | 2020-06-09 23:51 | NUR ---
ELOPEMENT: Pt eloped from facility. No medical devices taken. Pt aao x 4, ambulated with steady gait prior to elopement. Unknown cause for elopement. ERMD and house carpenter notified. See report.
--- NOTE | 2020-07-03 01:30 | Cardiology Report ---
APPROVED REPORT EKG Measurement Heart [id number] <Conclusion> Normal sinus rhythm Septal infarct, age undetermined Abnormal ECG
== END 2020-06-09 23:51 | disposition left against medical advice (07) ==
LOC: EDBD 20:11 → EMR 21:08 → MERGE 21:08 → EDBD 21:08 → EMR 23:51
DX: F10.10 Alcohol abuse, uncomplicated (principal); F14.10 Cocaine abuse, uncomplicated; F16.10 Hallucinogen abuse, uncomplicated; F12.10 Cannabis abuse, uncomplicated; S62.615A Displaced fracture of proximal phalanx of left ring finger, initial encounter for closed fracture; M19.042 Primary osteoarthritis, left hand; M25.542 Pain in joints of left hand; X58.XXXA Exposure to other specified factors, initial encounter; Y92.9 Unspecified place or not applicable
CPT/HCPCS: 29125; 36415; 71045; 73130; 80053; 80307; 84443; 85025; 93005; 96372; G0480; G0481; J1885; Z7502; 99283